=== PATIENT | male | born 1970 | race Caucasian/White ===

== ENCOUNTER 2018-11-06 20:05 | Emergency (ER) | payer OTHER ==
[~2018-11-06] VITALS: Ht 182.9 cm; Wt 76.4 kg
[2018-11-06 20:09] VITALS: Ht 182.9 cm; Wt 76.4 kg
[2018-11-06] MEDS ORDERED: ZOCOR10 MG PO (20:10)
[2018-11-06] MEDS ORDERED: COZAAR25 MG PO (20:10)
== END 2018-11-06 21:14 | disposition home or self-care (01) ==
LOC: D.ER 20:05
DX: S61.442A Puncture wound with foreign body of left hand, initial encounter (principal); X58.XXXA Exposure to other specified factors, initial encounter